=== PATIENT | female | born 2000 | race Caucasian/White ===

== ENCOUNTER 2025-01-08 18:01 | Emergency (ER) | payer BC, OTHER ==
[2025-01-08] MEDS ORDERED: Ibuprofen 200 MG TAB ONE (19:38)
== END 2025-01-08 19:48 | disposition home or self-care (01) ==
LOC: BURERS 18:01
DX: S50.10XA Contusion of unspecified forearm, initial encounter (principal); S80.11XA Contusion of right lower leg, initial encounter; V89.2XXA Person injured in unspecified motor-vehicle accident, traffic, initial encounter
CPT/HCPCS: 71046